=== PATIENT | male | born 1965 | race Caucasian/White ===

== ENCOUNTER 2019-05-04 11:33 | Emergency (ER) | payer OTHER ==
[~2019-05-04] VITALS: Ht 190.5 cm; Wt 111.1 kg
[2019-05-04] MEDS ORDERED: FLEXERIL PO (11:53)
[2019-05-04] MEDS ORDERED: MEDROLDOSEPACK PO (12:18)
[2019-05-04] MEDS ORDERED: NORCO 5-325 TA1 EAC1 PO (12:18)
[2019-05-04 12:41] VITALS: BP 180/117
== END 2019-05-04 12:44 | disposition home or self-care (01) ==
LOC: M.ERS 11:33
DX: M25.552 Pain in left hip (principal); I10 Essential (primary) hypertension